=== PATIENT | female | born 1965 | race Caucasian/White ===

== ENCOUNTER 2020-04-02 09:15 | Inpatient (IN) | payer MEDICAID ==
[~2020-04-02] VITALS: Ht 157.5 cm; Wt 83.6 kg
[2020-04-02 10:37] LABS: HEMATOCRIT. 42.1 % (36.0-48.0); HEMOGLOBIN. 14.2 g/dL (12.0-16.0); MEAN CORPUSCULAR HEMOGLOBIN 28.7 pg (28.0-32.0); MEAN CORPUSCULAR VOLUME 85.1 fL (81.0-99.0); MEAN PLATELET VOLUME 8.6 fl (7.4-10.4); PLATELET 326 x1000/uL (130-400); RED BLOOD CELL COUNT 4.95 mill/uL (4.2-5.4)
[2020-04-02 10:39] LABS: CLARITY URINE CLOUDY (CLEAR); COLOR URINE DARK YELLOW (YELLOW); KETONES URINE 1+ (NEGATIVE); LEUKOCYTE ESTERASE URINE 1+ (NEGATIVE); NITRITE URINE NEGATIVE (NEGATIVE); OCCULT BLOOD URINE NEGATIVE (NEGATIVE); PROTEIN URINE 1+ (NEGATIVE); SPECIFIC GRAVITY URINE 1.035 (1.005-1.030)
[2020-04-02 10:46] LABS: CHLORIDE 100 mEq/L (98-107)
[2020-04-02 10:53] LABS: INR 1.2; PROTHROMBIN TIME 12.1 sec (9.6-11.0)
[2020-04-02] MEDS ORDERED: DEXAMETHASONE 4MG/ML 1ML VIAL IV ONE (11:30)
[2020-04-02] MEDS ORDERED: CEFTRIAXONE 1 G PREMIX 50 ML IV ONE (11:30)
[2020-04-02] MEDS ORDERED: AZITHROMYCIN 500 MG in DEXT 5% WATER 250 ML IV ONE (11:30)
[2020-04-02] MEDS ORDERED: ASPIRIN 325MG EC TABLET PO ONE (11:30)
[2020-04-02 11:31] LABS: PLATELET ESTIMATE NORMAL
[2020-04-02 13:10] LABS: BG CARBOXYHEMOGLOBIN 0.7 % (0.5-1.5); BG FRACTION INSPIRED OXYGEN 100; BG HCO3 ACT 25.2 mmol/L (22.0-26.0); BG METHEMOGLOBIN 0.3 % (0.0-1.5); BG OXYGEN SATURATION 93.9 % (92.0-98.5); BG PCO2 34.8 mmHg (35.0-45.0); BG PH 7.477 (7.350-7.450); BG SAMPLE SITE RIGHT BRACHIAL; BG TOTAL HEMOGLOBIN 13.5 g/dL (12.0-18.0); BG VENT MODE MASK - NRB
[2020-04-02 16:21] VITALS: BP 122/64
[2020-04-02 16:51] VITALS: BP 122/64
[2020-04-02] MEDS ORDERED: BENA1TAB21 PO (16:57)
[2020-04-02] MEDS ORDERED: ATEN-42 MT (16:58)
[2020-04-02 20:00] VITALS: BP 105/59
[2020-04-02 20:43] LABS: CHLORIDE 101 mEq/L (98-107)
[2020-04-03] VITALS: BP 133/73
[2020-04-03] MEDS ORDERED: GUAIFENESIN 200MG/10ML SUGAR FREE UDC PO PRN (00:30)
[2020-04-03 04:00] VITALS: BP 130/92
[2020-04-03] MEDS: BLOOD SUGAR DIAGNOSTIC STRIP TEST SCH ×4 (07:10→21:58)
[2020-04-03 08:00] VITALS: BP 113/55
[2020-04-03] MEDS ORDERED: DEXTROSE 50% WATER 50ML SYRINGE IV PRN (08:00)
[2020-04-03 08:14] LABS: HEMATOCRIT. 38.2 % (36.0-48.0); HEMOGLOBIN. 13.1 g/dL (12.0-16.0); MEAN CORPUSCULAR HEMOGLOBIN 29.2 pg (28.0-32.0); MEAN CORPUSCULAR VOLUME 85.4 fL (81.0-99.0); MEAN PLATELET VOLUME 8.8 fl (7.4-10.4); PLATELET 304 x1000/uL (130-400); RED BLOOD CELL COUNT 4.47 mill/uL (4.2-5.4); RED CELL DISTRIBUTION WIDTH 13.7 % (11.6-14.6)
[2020-04-03] MEDS: INSULIN LISPRO 100 UNITS/ML SUBCUT SCH ×4 (08:45→22:01)
[2020-04-03] MEDS: ENOXAPARIN 40MG/0.4ML SYR SUBCUT SCH (08:46)
[2020-04-03] MEDS: DEXAMETHASONE 10 MG/ML VIAL IV SCH (08:47)
[2020-04-03] MEDS ORDERED: DEXAMETHASONE 10 MG/ML VIAL IV SCH (09:00)
[2020-04-03] MEDS: CEFTRIAXONE 1,000 MG in DEXTROSE 5% WATER 50 ML IV SCH (09:01)
[2020-04-03] MEDS: AZITHROMYCIN 500 MG in DEXT 5% WATER 250 ML IV SCH (10:53)
[2020-04-03 11:28] LABS: BG BASE EXCESS -1.8 mmol/L (-2.0-2.0); BG CARBOXYHEMOGLOBIN 0.3 % (0.5-1.5); BG DEOXYHEMOGLOBIN 3.7 % (0.0-5.0); BG FRACTION INSPIRED OXYGEN 21; BG HCO3 ACT 21.6 mmol/L (22.0-26.0); BG METHEMOGLOBIN 0.3 % (0.0-1.5); BG OXYGEN SATURATION 96.3 % (92.0-98.5); BG OXYHEMOGLOBIN 95.7 % (94.0-97.0); BG PCO2 31.5 mmHg (35.0-45.0); BG PH 7.453 (7.350-7.450); BG SAMPLE SITE RIGHT BRACHIAL; BG TOTAL HEMOGLOBIN 9.7 g/dL (12.0-18.0); BG VENT MODE ROOM AIR
[2020-04-03] MEDS ORDERED: BLOOD SUGAR DIAGNOSTIC STRIP TEST SCH (12:10)
[2020-04-03] MEDS ORDERED: INSULIN LISPRO 100 UNITS/ML SUBCUT SCH (12:40)
[2020-04-03 14:00] VITALS: BP 120/69
[2020-04-03 16:00] VITALS: BP 125/60
[2020-04-03 20:00] VITALS: BP 123/87
[2020-04-03 22:42] LABS: PLATELET ESTIMATE NORMAL
[2020-04-04] VITALS: BP 112/76
[2020-04-04 04:00] VITALS: BP 133/70
[2020-04-04] MEDS: BLOOD SUGAR DIAGNOSTIC STRIP TEST SCH ×4 (06:35→20:17)
[2020-04-04] MEDS: INSULIN LISPRO 100 UNITS/ML SUBCUT SCH ×4 (06:38→20:18)
[2020-04-04 08:00] VITALS: BP 123/65
[2020-04-04] MEDS: AZITHROMYCIN 500 MG in DEXT 5% WATER 250 ML IV SCH (08:41)
[2020-04-04] MEDS: ENOXAPARIN 40MG/0.4ML SYR SUBCUT SCH (08:41)
[2020-04-04] MEDS: DEXAMETHASONE 10 MG/ML VIAL IV SCH (08:41)
[2020-04-04] MEDS: CEFTRIAXONE 1,000 MG in DEXTROSE 5% WATER 50 ML IV SCH (08:41)
[2020-04-04] MEDS ORDERED: GUAIFENESIN-DM 200MG-20MG/10ML UDC PO PRN (10:00)
[2020-04-04] MEDS: GUAIFENESIN 600MG ER TABLET PO SCH ×2 (10:48→20:56)
[2020-04-04 12:00] VITALS: BP 122/65
[2020-04-04] MEDS: INSULIN GLARGINE UD 100 UNITS/ML SYR SUBCUT SCH ×2 (14:17→21:00)
[2020-04-04 16:00] VITALS: BP_SYST 122; BP_SYST 131; BP_DIAS 66
[2020-04-04 20:00] VITALS: BP 144/78
[2020-04-04] MEDS: DIPHENHYDRAMINE 50MG CAPSULE PO PRN (20:57)
[2020-04-04] MEDS ORDERED: IVERMECTIN 3 MG TABLET PO NR (23:30)
[2020-04-05] VITALS: BP 109/71
[2020-04-05 04:00] VITALS: BP 139/93
[2020-04-05] MEDS: BLOOD SUGAR DIAGNOSTIC STRIP TEST SCH ×4 (05:46→21:32)
[2020-04-05 08:00] VITALS: BP 144/78
[2020-04-05] MEDS: GUAIFENESIN 600MG ER TABLET PO SCH ×2 (08:06→21:32)
[2020-04-05] MEDS: CEFTRIAXONE 1,000 MG in DEXTROSE 5% WATER 50 ML IV SCH (08:07)
[2020-04-05] MEDS: AZITHROMYCIN 500 MG in DEXT 5% WATER 250 ML IV SCH (08:07)
[2020-04-05] MEDS: DEXAMETHASONE 10 MG/ML VIAL IV SCH (08:07)
[2020-04-05] MEDS: ENOXAPARIN 40MG/0.4ML SYR SUBCUT SCH (08:07)
[2020-04-05] MEDS: INSULIN LISPRO 100 UNITS/ML SUBCUT SCH ×4 (08:09→21:34)
[2020-04-05] MEDS: INSULIN GLARGINE UD 100 UNITS/ML SYR SUBCUT SCH ×2 (09:38→21:34)
[2020-04-05 12:00] VITALS: BP 131/86
[2020-04-05 16:00] VITALS: BP 133/77
[2020-04-05 20:00] VITALS: BP 115/56
[2020-04-05] MEDS: DIPHENHYDRAMINE 50MG CAPSULE PO PRN (21:32)
[2020-04-06] VITALS: BP 113/70
[2020-04-06 04:00] VITALS: BP 131/77
[2020-04-06] MEDS: ACETAMINOPHEN 325MG TABLET PO PRN ×2 (04:23→05:39)
[2020-04-06] MEDS: BLOOD SUGAR DIAGNOSTIC STRIP TEST SCH ×4 (06:19→21:53)
[2020-04-06] MEDS: INSULIN LISPRO 100 UNITS/ML SUBCUT SCH ×4 (06:19→22:16)
[2020-04-06 08:00] VITALS: BP 118/69
[2020-04-06] MEDS ORDERED: IVERMECTIN 3 MG TABLET PO NR (09:00)
[2020-04-06] MEDS: GUAIFENESIN 600MG ER TABLET PO SCH ×2 (10:03→21:53)
[2020-04-06] MEDS: ENOXAPARIN 40MG/0.4ML SYR SUBCUT SCH (10:03)
[2020-04-06] MEDS: DEXAMETHASONE 10 MG/ML VIAL IV SCH (10:04)
[2020-04-06] MEDS: AZITHROMYCIN 500 MG in DEXT 5% WATER 250 ML IV SCH (10:04)
[2020-04-06] MEDS: CEFTRIAXONE 1,000 MG in DEXTROSE 5% WATER 50 ML IV SCH (10:04)
[2020-04-06] MEDS: INSULIN GLARGINE UD 100 UNITS/ML SYR SUBCUT SCH ×2 (10:06→22:17)
[2020-04-06 16:00] VITALS: BP 119/65
[2020-04-06 20:41] VITALS: BP 122/71
[2020-04-07 00:28] VITALS: BP 132/83
[2020-04-07 04:00] VITALS: BP 120/70
[2020-04-07] MEDS: BLOOD SUGAR DIAGNOSTIC STRIP TEST SCH ×4 (06:25→21:58)
[2020-04-07] MEDS: INSULIN LISPRO 100 UNITS/ML SUBCUT SCH ×4 (06:25→22:13)
[2020-04-07 08:00] VITALS: BP 126/75
[2020-04-07] MEDS: DEXAMETHASONE 10 MG/ML VIAL IV SCH (09:45)
[2020-04-07] MEDS: INSULIN GLARGINE UD 100 UNITS/ML SYR SUBCUT SCH ×2 (09:45→22:14)
[2020-04-07] MEDS: ENOXAPARIN 40MG/0.4ML SYR SUBCUT SCH (09:45)
[2020-04-07] MEDS: GUAIFENESIN 600MG ER TABLET PO SCH ×2 (09:45→21:58)
[2020-04-07 12:00] VITALS: BP 97/61
[2020-04-07 16:00] VITALS: BP 130/73
[2020-04-07 20:00] VITALS: BP 108/57
[2020-04-08 00:02] VITALS: BP 97/64
[2020-04-08 04:00] VITALS: BP 135/70
[2020-04-08] MEDS: BLOOD SUGAR DIAGNOSTIC STRIP TEST SCH ×4 (06:35→21:00)
[2020-04-08] MEDS: INSULIN LISPRO 100 UNITS/ML SUBCUT SCH ×4 (07:10→21:00)
[2020-04-08 08:00] VITALS: BP 115/65
[2020-04-08] MEDS: DEXAMETHASONE 10 MG/ML VIAL IV SCH (10:07)
[2020-04-08] MEDS: GUAIFENESIN 600MG ER TABLET PO SCH ×2 (10:10→23:03)
[2020-04-08] MEDS: ENOXAPARIN 40MG/0.4ML SYR SUBCUT SCH (10:12)
[2020-04-08] MEDS: INSULIN GLARGINE UD 100 UNITS/ML SYR SUBCUT SCH ×2 (10:14→23:04)
[2020-04-08 12:00] VITALS: BP 105/66
[2020-04-08 16:00] VITALS: BP 127/54
[2020-04-08 20:00] VITALS: BP 115/74
[2020-04-09] VITALS: BP 133/76
[2020-04-09 04:00] VITALS: BP 93/64
[2020-04-09] MEDS: BLOOD SUGAR DIAGNOSTIC STRIP TEST SCH ×4 (06:47→22:00)
[2020-04-09] MEDS: INSULIN LISPRO 100 UNITS/ML SUBCUT SCH ×4 (07:10→23:15)
[2020-04-09 07:38] LABS: BASOPHILS % 0.7 % (0.0-2.0); EOSINOPHILS % 1.2 % (0.0-5.0); HEMATOCRIT. 40.5 % (36.0-48.0); HEMOGLOBIN. 13.8 g/dL (12.0-16.0); LYMPHOCYTES % 11.8 % (20.0-50.0); MEAN CORPUSCULAR HEMOGLOBIN 28.9 pg (28.0-32.0); MEAN CORPUSCULAR VOLUME 84.8 fL (81.0-99.0); MEAN PLATELET VOLUME 9.2 fl (7.4-10.4); MONOCYTES % 2.8 % (2.0-8.0); NEUTROPHILS % 83.5 % (40.0-76.0); PLATELET 217 x1000/uL (130-400); RED BLOOD CELL COUNT 4.78 mill/uL (4.2-5.4); RED CELL DISTRIBUTION WIDTH 13.8 % (11.6-14.6)
[2020-04-09 08:00] VITALS: BP 114/65
[2020-04-09 08:34] LABS: CHLORIDE 100 mEq/L (98-107)
[2020-04-09] MEDS: ENOXAPARIN 40MG/0.4ML SYR SUBCUT SCH (09:00)
[2020-04-09] MEDS: DEXAMETHASONE 10 MG/ML VIAL IV SCH (10:30)
[2020-04-09] MEDS: GUAIFENESIN 600MG ER TABLET PO SCH ×2 (10:31→22:00)
[2020-04-09] MEDS: INSULIN GLARGINE UD 100 UNITS/ML SYR SUBCUT SCH ×2 (10:32→22:01)
[2020-04-09 12:00] VITALS: BP 128/72
[2020-04-09 16:00] VITALS: BP 103/73
[2020-04-09 20:00] VITALS: BP 143/71
[2020-04-10] VITALS: BP_SYST 106; BP_SYST 121; BP_DIAS 73; BP_DIAS 76
[2020-04-10 04:00] VITALS: BP 115/66
[2020-04-10] MEDS: BLOOD SUGAR DIAGNOSTIC STRIP TEST SCH ×4 (06:06→21:50)
[2020-04-10] MEDS: INSULIN LISPRO 100 UNITS/ML SUBCUT SCH ×3 (07:10→22:11)
[2020-04-10 08:00] VITALS: BP 119/63
[2020-04-10] MEDS: ENOXAPARIN 40MG/0.4ML SYR SUBCUT SCH (08:49)
[2020-04-10] MEDS: GUAIFENESIN 600MG ER TABLET PO SCH ×2 (08:49→20:52)
[2020-04-10] MEDS: DEXAMETHASONE 10 MG/ML VIAL IV SCH (08:49)
[2020-04-10] MEDS: INSULIN GLARGINE UD 100 UNITS/ML SYR SUBCUT SCH ×2 (10:39→22:11)
[2020-04-10 12:00] VITALS: BP 100/67
[2020-04-10 16:00] VITALS: BP 114/71
[2020-04-10 20:00] VITALS: BP 113/74
[2020-04-11] VITALS: BP 101/66
[2020-04-11 04:00] VITALS: BP 105/66
[2020-04-11] MEDS: BLOOD SUGAR DIAGNOSTIC STRIP TEST SCH ×4 (06:04→21:00)
[2020-04-11] MEDS: INSULIN LISPRO 100 UNITS/ML SUBCUT SCH ×3 (06:04→16:31)
[2020-04-11 08:00] VITALS: BP 111/71
[2020-04-11] MEDS: DEXAMETHASONE 10 MG/ML VIAL IV SCH (09:50)
[2020-04-11] MEDS: GUAIFENESIN 600MG ER TABLET PO SCH (09:50)
[2020-04-11] MEDS: ENOXAPARIN 40MG/0.4ML SYR SUBCUT SCH (09:51)
[2020-04-11] MEDS: INSULIN GLARGINE UD 100 UNITS/ML SYR SUBCUT SCH (10:00)
[2020-04-11 12:00] VITALS: BP 114/70
[2020-04-11 16:00] VITALS: BP 108/65
[2020-04-11 20:00] VITALS: BP 107/68
[2020-04-12] VITALS: BP 118/72
[2020-04-12] MEDS: GUAIFENESIN 600MG ER TABLET PO SCH ×3 (00:21→23:21)
[2020-04-12] MEDS: INSULIN LISPRO 100 UNITS/ML SUBCUT SCH ×5 (00:22→23:22)
[2020-04-12] MEDS: INSULIN GLARGINE UD 100 UNITS/ML SYR SUBCUT SCH ×3 (00:23→23:23)
[2020-04-12 04:00] VITALS: BP 106/70
[2020-04-12] MEDS: BLOOD SUGAR DIAGNOSTIC STRIP TEST SCH ×4 (06:40→21:00)
[2020-04-12 08:00] VITALS: BP 120/74
[2020-04-12] MEDS: DEXAMETHASONE 10 MG/ML VIAL IV SCH (08:39)
[2020-04-12] MEDS: ENOXAPARIN 40MG/0.4ML SYR SUBCUT SCH (08:41)
[2020-04-12 12:15] VITALS: BP 114/68
[2020-04-12 16:00] VITALS: BP 102/66
[2020-04-12 20:00] VITALS: BP 106/63
[2020-04-13] VITALS: BP 113/78
[2020-04-13 04:00] VITALS: BP 110/76
[2020-04-13] MEDS: BLOOD SUGAR DIAGNOSTIC STRIP TEST SCH ×3 (06:40→21:00)
[2020-04-13] MEDS: INSULIN LISPRO 100 UNITS/ML SUBCUT SCH ×2 (07:10→13:43)
[2020-04-13 08:00] VITALS: BP 112/67
[2020-04-13] MEDS: GUAIFENESIN 600MG ER TABLET PO SCH (08:42)
[2020-04-13] MEDS: ENOXAPARIN 40MG/0.4ML SYR SUBCUT SCH (08:42)
[2020-04-13] MEDS: INSULIN GLARGINE UD 100 UNITS/ML SYR SUBCUT SCH (11:34)
[2020-04-13 12:00] VITALS: BP 114/69
[2020-04-13 16:00] VITALS: BP 103/64
[2020-04-13 20:00] VITALS: BP 94/58
[2020-04-14] MEDS: INSULIN LISPRO 100 UNITS/ML SUBCUT SCH ×5 (00:45→20:56)
[2020-04-14] MEDS: INSULIN GLARGINE UD 100 UNITS/ML SYR SUBCUT SCH ×3 (00:49→21:51)
[2020-04-14] MEDS: GUAIFENESIN 600MG ER TABLET PO SCH ×3 (00:52→20:35)
[2020-04-14 04:00] VITALS: BP 117/52
[2020-04-14] MEDS: BLOOD SUGAR DIAGNOSTIC STRIP TEST SCH ×4 (06:40→20:55)
[2020-04-14 08:00] VITALS: BP 99/68
[2020-04-14] MEDS: ENOXAPARIN 40MG/0.4ML SYR SUBCUT SCH (09:45)
[2020-04-14 12:00] VITALS: BP 96/60
[2020-04-14 16:00] VITALS: BP 111/66
[2020-04-14 20:00] VITALS: BP 106/69
[2020-04-15 00:01] VITALS: BP 98/59
[2020-04-15 04:00] VITALS: BP 91/67
[2020-04-15] MEDS: INSULIN LISPRO 100 UNITS/ML SUBCUT SCH ×4 (05:44→21:32)
[2020-04-15] MEDS: BLOOD SUGAR DIAGNOSTIC STRIP TEST SCH ×4 (05:44→21:33)
[2020-04-15 08:00] VITALS: BP 105/64
[2020-04-15] MEDS: GUAIFENESIN 600MG ER TABLET PO SCH ×2 (09:38→21:33)
[2020-04-15] MEDS: ENOXAPARIN 40MG/0.4ML SYR SUBCUT SCH (09:38)
[2020-04-15] MEDS: INSULIN GLARGINE UD 100 UNITS/ML SYR SUBCUT SCH ×2 (09:39→21:33)
[2020-04-15 12:00] VITALS: BP 109/57
[2020-04-15 16:00] VITALS: BP 97/56
[2020-04-15 20:00] VITALS: BP 102/62
[2020-04-15] MEDS ORDERED: CALCIUM CARBONATE 500MG TABLET CHEW PO PRN (23:00)
[2020-04-16] VITALS: BP 105/72
[2020-04-16 04:00] VITALS: BP 98/62
[2020-04-16 06:40] LABS: BASOPHILS % 1.1 % (0.0-2.0); EOSINOPHILS % 3.3 % (0.0-5.0); HEMATOCRIT. 39.8 % (36.0-48.0); HEMOGLOBIN. 13.5 g/dL (12.0-16.0); LYMPHOCYTES % 21.7 % (20.0-50.0); MEAN CORPUSCULAR HEMOGLOBIN 29.2 pg (28.0-32.0); MEAN CORPUSCULAR VOLUME 86.2 fL (81.0-99.0); MEAN PLATELET VOLUME 9.4 fl (7.4-10.4); MONOCYTES % 7.3 % (2.0-8.0); NEUTROPHILS % 66.6 % (40.0-76.0); PLATELET 170 x1000/uL (130-400); RED BLOOD CELL COUNT 4.62 mill/uL (4.2-5.4); RED CELL DISTRIBUTION WIDTH 14.4 % (11.6-14.6)
[2020-04-16 06:44] LABS: CHLORIDE 105 mEq/L (98-107)
[2020-04-16] MEDS: INSULIN LISPRO 100 UNITS/ML SUBCUT SCH ×4 (07:10→21:00)
[2020-04-16] MEDS: BLOOD SUGAR DIAGNOSTIC STRIP TEST SCH ×4 (07:33→21:44)
[2020-04-16 08:00] VITALS: BP 106/59
[2020-04-16] MEDS: GUAIFENESIN 600MG ER TABLET PO SCH ×2 (08:54→21:42)
[2020-04-16] MEDS: ENOXAPARIN 40MG/0.4ML SYR SUBCUT SCH (11:00)
[2020-04-16] MEDS: INSULIN GLARGINE UD 100 UNITS/ML SYR SUBCUT SCH ×2 (11:02→21:44)
[2020-04-16 12:00] VITALS: BP 97/61
[2020-04-16 16:00] VITALS: BP 99/62
[2020-04-16 20:00] VITALS: BP 127/58
[2020-04-16] MEDS: DIPHENHYDRAMINE 50MG CAPSULE PO PRN (21:42)
[2020-04-17] VITALS: BP 98/62
[2020-04-17] MEDS: BLOOD SUGAR DIAGNOSTIC STRIP TEST SCH ×4 (06:19→20:53)
[2020-04-17] MEDS: INSULIN LISPRO 100 UNITS/ML SUBCUT SCH ×4 (07:10→22:26)
[2020-04-17 08:00] VITALS: BP 96/58
[2020-04-17] MEDS: GUAIFENESIN 600MG ER TABLET PO SCH ×2 (08:34→20:53)
[2020-04-17] MEDS: ENOXAPARIN 40MG/0.4ML SYR SUBCUT SCH (08:34)
[2020-04-17] MEDS: INSULIN GLARGINE UD 100 UNITS/ML SYR SUBCUT SCH ×2 (10:25→22:26)
[2020-04-17 12:00] VITALS: BP 109/75
[2020-04-17 16:28] LABS: BG BASE EXCESS 1.5 mmol/L (-2.0-2.0); BG CARBOXYHEMOGLOBIN 0.4 % (0.5-1.5); BG DEOXYHEMOGLOBIN 14.5 % (0.0-5.0); BG FRACTION INSPIRED OXYGEN 21; BG HCO3 ACT 24.6 mmol/L (22.0-26.0); BG METHEMOGLOBIN 0.1 % (0.0-1.5); BG OXYGEN SATURATION 85.4 % (92.0-98.5); BG PCO2 34.5 mmHg (35.0-45.0); BG PH 7.471 (7.350-7.450); BG PO2 48.1 mmHg (75.0-100.0); BG SAMPLE SITE RIGHT BRACHIAL; BG TOTAL HEMOGLOBIN 14.5 g/dL (12.0-18.0); BG VENT MODE ROOM AIR
[2020-04-17 19:36] VITALS: BP 121/76
[2020-04-17] MEDS: DIPHENHYDRAMINE 50MG CAPSULE PO PRN (20:53)
[2020-04-18 00:43] VITALS: BP 101/72
[2020-04-18 04:22] VITALS: BP 100/65
[2020-04-18] MEDS: BLOOD SUGAR DIAGNOSTIC STRIP TEST SCH ×4 (06:40→20:59)
[2020-04-18] MEDS: INSULIN LISPRO 100 UNITS/ML SUBCUT SCH ×4 (07:10→21:31)
[2020-04-18 08:00] VITALS: BP 98/64
[2020-04-18] MEDS: INSULIN GLARGINE UD 100 UNITS/ML SYR SUBCUT SCH ×2 (10:00→22:00)
[2020-04-18] MEDS: GUAIFENESIN 600MG ER TABLET PO SCH ×2 (10:06→21:29)
[2020-04-18] MEDS: ENOXAPARIN 40MG/0.4ML SYR SUBCUT SCH (10:06)
[2020-04-18 12:00] VITALS: BP 149/62
[2020-04-18 16:17] VITALS: BP 96/55
[2020-04-18 20:00] VITALS: BP 99/66
[2020-04-19] VITALS: BP 111/61
[2020-04-19 04:00] VITALS: BP 103/69
[2020-04-19] MEDS: BLOOD SUGAR DIAGNOSTIC STRIP TEST SCH ×4 (07:40→21:00)
[2020-04-19 08:00] VITALS: BP 118/70
[2020-04-19] MEDS: INSULIN LISPRO 100 UNITS/ML SUBCUT SCH ×4 (08:10→21:00)
[2020-04-19] MEDS: GUAIFENESIN 600MG ER TABLET PO SCH ×2 (11:00→21:56)
[2020-04-19] MEDS: INSULIN GLARGINE UD 100 UNITS/ML SYR SUBCUT SCH ×2 (11:03→22:00)
[2020-04-19] MEDS: ENOXAPARIN 40MG/0.4ML SYR SUBCUT SCH (11:04)
[2020-04-19 12:00] VITALS: BP 111/72
[2020-04-19 16:00] VITALS: BP 145/76
[2020-04-19 20:00] VITALS: BP 109/70
[2020-04-20] VITALS: BP 100/61
[2020-04-20] MEDS: DIPHENHYDRAMINE 50MG CAPSULE PO PRN ×2 (00:13→23:09)
[2020-04-20 04:00] VITALS: BP 110/63
[2020-04-20] MEDS: BLOOD SUGAR DIAGNOSTIC STRIP TEST SCH ×4 (06:41→21:00)
[2020-04-20] MEDS: INSULIN LISPRO 100 UNITS/ML SUBCUT SCH ×4 (07:33→21:00)
[2020-04-20 08:00] VITALS: BP 112/59
[2020-04-20] MEDS: ENOXAPARIN 40MG/0.4ML SYR SUBCUT SCH (08:11)
[2020-04-20] MEDS: GUAIFENESIN 600MG ER TABLET PO SCH ×2 (08:11→21:50)
[2020-04-20] MEDS: INSULIN GLARGINE UD 100 UNITS/ML SYR SUBCUT SCH ×2 (10:00→21:54)
[2020-04-20 12:30] VITALS: BP 106/56
[2020-04-20 16:30] VITALS: BP 122/68
[2020-04-20 20:00] VITALS: BP 122/65
[2020-04-21] VITALS: BP 117/64
[2020-04-21 04:00] VITALS: BP 95/63
[2020-04-21] MEDS: BLOOD SUGAR DIAGNOSTIC STRIP TEST SCH ×3 (06:15→21:00)
[2020-04-21 08:00] VITALS: BP 117/66
[2020-04-21] MEDS: INSULIN LISPRO 100 UNITS/ML SUBCUT SCH ×3 (08:10→22:38)
[2020-04-21] MEDS: ENOXAPARIN 40MG/0.4ML SYR SUBCUT SCH (08:16)
[2020-04-21] MEDS: GUAIFENESIN 600MG ER TABLET PO SCH ×2 (08:16→22:39)
[2020-04-21] MEDS: INSULIN GLARGINE UD 100 UNITS/ML SYR SUBCUT SCH ×2 (10:36→22:38)
[2020-04-21 12:00] VITALS: BP 119/77
[2020-04-21 15:58] LABS: EOSINOPHILS % 2.7 % (0.0-5.0); HEMATOCRIT. 42.1 % (36.0-48.0); HEMOGLOBIN. 14.1 g/dL (12.0-16.0); LYMPHOCYTES % 23.5 % (20.0-50.0); MEAN CORPUSCULAR HEMOGLOBIN 29.1 pg (28.0-32.0); MONOCYTES % 10.4 % (2.0-8.0); NEUTROPHILS % 62.4 % (40.0-76.0); PLATELET 163 x1000/uL (130-400); RED BLOOD CELL COUNT 4.84 mill/uL (4.2-5.4); RED CELL DISTRIBUTION WIDTH 14.7 % (11.6-14.6)
[2020-04-21 16:00] VITALS: BP 125/84
[2020-04-21 16:14] LABS: CHLORIDE 106 mEq/L (98-107)
[2020-04-21 20:41] VITALS: BP 112/72
[2020-04-22] VITALS: BP 110/69
[2020-04-22 04:00] VITALS: BP_SYST 104; BP_SYST 110; BP_DIAS 62; BP_DIAS 72
[2020-04-22] MEDS: INSULIN LISPRO 100 UNITS/ML SUBCUT SCH ×4 (07:07→22:58)
[2020-04-22 08:00] VITALS: BP 114/73
[2020-04-22] MEDS: ENOXAPARIN 40MG/0.4ML SYR SUBCUT SCH (08:23)
[2020-04-22] MEDS: GUAIFENESIN 600MG ER TABLET PO SCH ×2 (08:23→22:57)
[2020-04-22] MEDS ORDERED: INSLIS SUBCUT (09:08)
[2020-04-22] MEDS ORDERED: LANTUSUD SUBCUT (09:08)
[2020-04-22 11:27] LABS: BASOPHILS % 0.9 % (0.0-2.0); EOSINOPHILS % 2.2 % (0.0-5.0); HEMOGLOBIN. 13.5 g/dL (12.0-16.0); LYMPHOCYTES % 24.4 % (20.0-50.0); MEAN CORPUSCULAR HEMOGLOBIN 28.5 pg (28.0-32.0); MEAN CORPUSCULAR VOLUME 86.6 fL (81.0-99.0); MEAN PLATELET VOLUME 9.6 fl (7.4-10.4); MONOCYTES % 8.2 % (2.0-8.0); NEUTROPHILS % 64.3 % (40.0-76.0); PLATELET 147 x1000/uL (130-400); RED BLOOD CELL COUNT 4.73 mill/uL (4.2-5.4)
[2020-04-22] MEDS: BLOOD SUGAR DIAGNOSTIC STRIP TEST SCH ×3 (11:40→21:55)
[2020-04-22] MEDS: INSULIN GLARGINE UD 100 UNITS/ML SYR SUBCUT SCH ×2 (11:46→23:00)
[2020-04-22 11:55] LABS: CHLORIDE 106 mEq/L (98-107)
[2020-04-22 12:00] VITALS: BP 108/75
[2020-04-22 16:00] VITALS: BP 118/72
[2020-04-23] VITALS: BP 113/70
[2020-04-23 04:00] VITALS: BP 112/70
[2020-04-23] MEDS: INSULIN LISPRO 100 UNITS/ML SUBCUT SCH ×4 (07:19→20:22)
[2020-04-23] MEDS: BLOOD SUGAR DIAGNOSTIC STRIP TEST SCH ×4 (07:59→20:22)
[2020-04-23 08:00] VITALS: BP 113/71
[2020-04-23] MEDS: GUAIFENESIN 600MG ER TABLET PO SCH ×2 (08:51→20:22)
[2020-04-23] MEDS: ENOXAPARIN 40MG/0.4ML SYR SUBCUT SCH (08:53)
[2020-04-23] MEDS: INSULIN GLARGINE UD 100 UNITS/ML SYR SUBCUT SCH ×2 (11:50→22:00)
[2020-04-23 12:00] VITALS: BP 121/78
[2020-04-23 16:00] VITALS: BP 112/75
[2020-04-23 20:00] VITALS: BP 130/83
[2020-04-24] VITALS: BP 103/64
[2020-04-24 04:00] VITALS: BP 108/66
[2020-04-24] MEDS: BLOOD SUGAR DIAGNOSTIC STRIP TEST SCH ×4 (06:40→21:00)
[2020-04-24] MEDS: INSULIN LISPRO 100 UNITS/ML SUBCUT SCH ×4 (07:29→21:00)
[2020-04-24 08:00] VITALS: BP 105/68
[2020-04-24] MEDS: ENOXAPARIN 40MG/0.4ML SYR SUBCUT SCH (08:11)
[2020-04-24] MEDS: GUAIFENESIN 600MG ER TABLET PO SCH ×2 (08:11→20:48)
[2020-04-24] MEDS: INSULIN GLARGINE UD 100 UNITS/ML SYR SUBCUT SCH ×2 (10:00→21:16)
[2020-04-24 12:00] VITALS: BP 106/66
[2020-04-24 16:00] VITALS: BP 101/58
[2020-04-24 19:31] VITALS: BP 127/69
[2020-04-25 00:05] VITALS: BP 103/62
[2020-04-25 04:00] VITALS: BP 106/60
[2020-04-25] MEDS: BLOOD SUGAR DIAGNOSTIC STRIP TEST SCH ×2 (05:31→12:27)
[2020-04-25 08:00] VITALS: BP 128/63
[2020-04-25] MEDS: INSULIN LISPRO 100 UNITS/ML SUBCUT SCH ×2 (08:10→12:27)
[2020-04-25] MEDS: GUAIFENESIN 600MG ER TABLET PO SCH (09:17)
[2020-04-25] MEDS: ENOXAPARIN 40MG/0.4ML SYR SUBCUT SCH (09:17)
[2020-04-25] MEDS: INSULIN GLARGINE UD 100 UNITS/ML SYR SUBCUT SCH (09:19)
[2020-04-25 12:00] VITALS: BP_SYST 122; BP_SYST 128; BP_DIAS 65; BP_DIAS 83
== END 2020-04-25 16:20 | disposition left against medical advice (07) | DRG 720 ==
LOC: ER 09:38 → EDBEDREQ 10:06 → EDBD 12:47 → 8WST 12:47 → EDBEDREQ 12:49 → EDBEDREQSVC 12:49 → ENRESERV 13:49 → 7EST 04-06 14:55 → 7WST 04-18 11:57
PROVIDERS: ADMIT Family Medicine; ATTEND Family Medicine
DX: A41.89 Other specified sepsis (principal); U07.1 COVID-19; J96.01 Acute respiratory failure with hypoxia; J12.82 Pneumonia due to coronavirus disease 2019; E11.9 Type 2 diabetes mellitus without complications; I10 Essential (primary) hypertension; E66.9 Obesity, unspecified; Z68.33 Body mass index [BMI] 33.0-33.9, adult; R65.20 Severe sepsis without septic shock
CPT/HCPCS: 36415; 36600; 71045; 80048; 80053; 81003; 82375; 82728; 82805; 82962; 83036; 83605; 83615; 84145; 84484; 85025; 85379; 86140; 87426; 93005; 99291; J0456; J0696; J1100; J1650; J1815; J7060; Q0163; U0003